=== PATIENT | male | born 1965 | race Two or more races ===

== ENCOUNTER 2019-11-01 06:42 | Emergency (ER) | payer OTHER ==
[~2019-11-01] VITALS: Ht 170.2 cm; Wt 85.7 kg
[~2019-11-01 06:42] MED LIST: LOTREL 5-20 MG1 CAP PO; TOPROL XL25 MG PO
[2019-11-01] MEDS ORDERED: CARVEDILOL ER40 MG (06:52)
[2019-11-01] MEDS ORDERED: AZOR 5-40 MG T1 EACH (06:52)
[2019-11-01] MEDS ORDERED: COZAAR50 MG (06:52)
== END 2019-11-01 10:36 | disposition home or self-care (01) ==
LOC: ER 06:42
DX: I16.0 Hypertensive urgency (principal); I10 Essential (primary) hypertension; R00.2 Palpitations

== ENCOUNTER 2020-03-26 03:51 | Emergency (ER) | payer OTHER ==
[~2020-03-26] VITALS: Ht 170.2 cm; Wt 83.9 kg
[~2020-03-26 03:51] MED LIST changes: +AZOR 5-40 MG T1 EACH; +CARVEDILOL ER40 MG; +COZAAR50 MG
== END 2020-03-26 12:09 | disposition home or self-care (01) ==
LOC: ER 03:51
DX: R00.2 Palpitations (principal); R10.13 Epigastric pain